=== PATIENT | male | born 1990 | race Caucasian/White ===

== ENCOUNTER 2020-01-06 11:10 | Emergency (ER) | payer MEDICAID ==
[~2020-01-06] VITALS: Ht 190.5 cm; Wt 80.1 kg
--- NOTE | 2020-01-06 11:38 | NUR ---
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
--- NOTE | 2020-01-06 12:03 | NUR ---
breath sounds difficult to auscultate bilaterally
[2020-01-06] MEDS ORDERED: KETOROLAC 30 MG/1 ML IM ONE (12:30)
--- NOTE | 2020-01-06 12:47 | NUR ---
MEDICATED PER EMAR TO RADIOLOGY
--- NOTE | 2020-01-06 13:20 | NUR ---
WITH REASSESSMENT PAIN IMPROVED TO 2/10
[2020-01-06 13:34] VITALS: BP 109/66
--- NOTE | 2020-01-06 13:35 | NUR ---
TASK RN: SONNY FERGUSON AT BEDSIDE. TEST RESULTS REVIEWED AND D/C POC. QUESTIONS ANSWERED.
[2020-01-06] MEDS ORDERED: KETOROLAC 30 MG/1 ML ONE (20:38)
== END 2020-01-06 13:59 | disposition home or self-care (01) ==
LOC: ED 13:43
DX: S29.011A Strain of muscle and tendon of front wall of thorax, initial encounter (principal); X58.XXXA Exposure to other specified factors, initial encounter; Y93.89 Activity, other specified; Y92.89 Other specified places as the place of occurrence of the external cause; Y99.8 Other external cause status
CPT/HCPCS: 71101; 96372; 99283; J1885